=== PATIENT | female | born 1950 ===

== ENCOUNTER 2023-05-14 11:02 | Outpatient (CLI) | payer OTHER | END 2023-05-14 11:09 | disposition home or self-care (01) | LOC: SONOGRAMA 11:02 | DX: N83.209 Unspecified ovarian cyst, unspecified side (principal); Z12.4 Encounter for screening for malignant neoplasm of cervix ==

== ENCOUNTER 2025-04-22 07:07 | Outpatient (CLI) | payer OTHER | END 2025-04-22 12:50 | disposition home or self-care (01) | LOC: TOM 07:07 | DX: R10.819 Abdominal tenderness, unspecified site (principal) | CPT/HCPCS: 74170; Q9965 ==